=== PATIENT | female | born 1955 | race Caucasian/White ===

== ENCOUNTER 2024-05-22 12:56 | Outpatient (CLI) | payer BC, MEDICARE | END 2024-05-22 12:57 | disposition home or self-care (01) | LOC: CSHWCC 12:56 | PROVIDERS: ATTEND Nurse Practitioner Family | DX: L24.A2 Irritant contact dermatitis due to fecal, urinary or dual incontinence (principal) | CPT/HCPCS: 99214; G0463 ==

== ENCOUNTER 2024-05-29 15:53 | Outpatient (CLI) | payer BC, MEDICARE | END 2024-05-29 15:54 | disposition home or self-care (01) | LOC: CSHWCC 15:53 | PROVIDERS: ATTEND Nurse Practitioner Family | DX: L24.A2 Irritant contact dermatitis due to fecal, urinary or dual incontinence (principal) | CPT/HCPCS: 99213; G0463 ==

== ENCOUNTER 2024-06-07 17:09 | Emergency (ER) | payer MEDICARE, BC ==
[~2024-06-07 17:09] MED LIST: MD-Gastroview 120 ML BOT ONE
[2024-06-07] MEDS ORDERED: Lorazepam 2 MG/ML VIAL ONE (18:00)
[2024-06-07] MEDS ORDERED: Morphine 4 MG/ML VIAL ONE (18:00)
[2024-06-07] MEDS ORDERED: Lidocaine 2% 6 ML (Jelly) SYR ONE (18:22)
== END 2024-06-07 19:07 | disposition home or self-care (01) ==
LOC: CSHERS 17:09
DX: K94.29 Other complications of gastrostomy (principal)
CPT/HCPCS: 74019; J2060; J2272; 96374; 96375; Q9963

== ENCOUNTER 2024-07-07 11:26 | Outpatient (CLI) | payer BC, MEDICARE | END 2024-07-07 11:27 | disposition home or self-care (01) | LOC: CSHCT 11:26 | PROVIDERS: ATTEND Surgery | DX: K94.23 Gastrostomy malfunction (principal); Z98.890 Other specified postprocedural states | CPT/HCPCS: 74176 ==